=== PATIENT | male | born 1955 | race Caucasian/White ===

== ENCOUNTER 2020-06-01 02:11 | Inpatient (IN) | payer MEDICARE, BC ==
[~2020-06-01] VITALS: Ht 172.7 cm; Wt 107.9 kg
[2020-06-01] MEDS ORDERED: CARV25 PO (02:24)
[2020-06-01] MEDS ORDERED: ASPIR 8181 M1 PO (02:24)
[2020-06-01 02:40] LABS: Calcium, Ionized (POC) 1.22 mmol/L (1.10-1.46); Chloride (POC) 101 mmol/L (98-108); Creatinine (POC) 1.2 mg/dL (0.8-1.3); Glucose (ISTAT POC) 124 mg/dL (70-99); Hemoglobin (POC) 13.9 g/dL (13.5-17.5); Potassium (POC) 3.7 mmol/L (3.5-5.5); Sodium (POC) 138 mmol/L (135-148); Total CO2 (POC) 23 mmol/L (21-32)
[2020-06-01 02:43] LABS: Hematocrit 42.1 % (37.0-53.0); Hemoglobin 13.7 g/dL (13.5-17.5); Mean Corpuscular HGB 31.6 pg (26.0-34.0); Mean Corpuscular HGB Conc 32.5 g/dL (31.5-36.5); Mean Corpuscular Volume 97 fL (80-100); Mean Platelet Volume 9.3 fL (9.1-12.4); Platelet Count 230 K/mm3 (150-400); RDW Coefficient Variation 13.9 % (11.7-14.2); RDW Standard Deviation 50.3 fL (35.1-46.3); Red Blood Cell Count 4.33 M/mm3 (4.30-5.90); White Blood Cell Count 11.17 K/mm3 (4.00-11.30)
[2020-06-01 02:58] LABS: International Normalized Ratio 0.93
[2020-06-01 03:15] LABS: Alanine Aminotransfer (ALT/SGP 27 U/L (12-78); Albumin, Blood 3.7 g/dL (3.4-5.0); Alk Phos 148 U/L (50-136); Anion Gap 7 mmol/L (6-16); Aspartate Aminotrans (AST/SGOT 24 U/L (12-37); Bilirubin, Total 0.5 mg/dL (0.1-1.0); Blood Urea Nitrogen 17 mg/dL (8-24); Bun/Creatinine Ratio 13.8 (12.0-20.0); CO2, Blood 27 mmol/L (21-32); Calcium, Blood 9.1 mg/dL (8.5-10.1); Chloride, Blood 105 mmol/L (98-108); Cholesterol 132 mg/dL (50-200); Creatinine, Blood 1.23 mg/dL (0.60-1.20); Globulin, Blood 3.6 g/dL (2.2-4.0); Glomerular Filtration Rate >60 (60-); Glucose, Blood 121 mg/dL (70-99); HDL Cholesterol 44 mg/dL (>39); LDL/HDL RATIO 0.8; Low Density Lipoprotein Chol 34 mg/dL (0-110); Magnesium, Blood 1.7 mg/dL (1.6-2.4); Potassium, Blood 3.8 mmol/L (3.5-5.5); Sodium, Blood 139 mmol/L (136-145); Total Protein, Blood 7.3 g/dL (6.4-8.2); Triglycerides 268 mg/dL (30-160); Very Low Density Lipoprot Chol 53 mg/dL (6-32)
[2020-06-01 03:19] LABS: Troponin I 0.907 ng/mL (0.000-0.040)
[2020-06-01 08:44] LABS: BASOPHILS ABSOLUTE AUTO 0.05 K/mm3 (0.00-0.23); BASOPHILS PERCENT AUTO 1 % (0-2); EOSINOPHILS ABSOLUTE AUTO 0.45 K/mm3 (0.00-0.68); EOSINOPHILS PERCENT AUTO 5 % (0-6); Hematocrit 39.2 % (37.0-53.0); Hemoglobin 12.6 g/dL (13.5-17.5); IMMATURE GRAN ABSOLUTE AUTO 0.07 K/mm3 (0.00-0.10); IMMATURE GRAN PERCENT AUTO 1 % (0-1); LYMPHOCYTES ABSOLUTE AUTO 3.31 K/mm3 (0.84-5.20); LYMPHOCYTES PERCENT AUTO 34 % (21-46); MONOCYTES ABSOLUTE AUTO 0.84 K/mm3 (0.16-1.47); MONOCYTES PERCENT AUTO 9 % (4-13); Mean Corpuscular HGB 31.3 pg (26.0-34.0); Mean Corpuscular HGB Conc 32.1 g/dL (31.5-36.5); Mean Corpuscular Volume 98 fL (80-100); Mean Platelet Volume 9.3 fL (9.1-12.4); NEUTROPHILS ABSOLUTE AUTO 5.11 K/mm3 (1.96-9.15); NEUTROPHILS PERCENT AUTO 52 % (41-73); Platelet Count 202 K/mm3 (150-400); RDW Coefficient Variation 13.9 % (11.7-14.2); RDW Standard Deviation 50.5 fL (35.1-46.3); Red Blood Cell Count 4.02 M/mm3 (4.30-5.90); White Blood Cell Count 9.83 K/mm3 (4.00-11.30)
[2020-06-01 09:16] LABS: Anion Gap 4 mmol/L (6-16); Blood Urea Nitrogen 17 mg/dL (8-24); Bun/Creatinine Ratio 13.9 (12.0-20.0); CO2, Blood 29 mmol/L (21-32); CPK Creatine Kinase 238 U/L (39-308); Calcium, Blood 8.7 mg/dL (8.5-10.1); Chloride, Blood 106 mmol/L (98-108); Creatine Kinase MB 15.3 ng/mL (0.0-3.6); Creatine Kinase MB Index 6.4 (0.0-4.0); Creatinine, Blood 1.22 mg/dL (0.60-1.20); Glomerular Filtration Rate >60 (60-); Glucose, Blood 105 mg/dL (70-99); Sodium, Blood 139 mmol/L (136-145)
[2020-06-01] MEDS ORDERED: SOLI5 PO (15:50)
[2020-06-01] MEDS ORDERED: ZYRTEC10 M2 PO (15:51)
[2020-06-01] MEDS ORDERED: METF500 PO (16:36)
[2020-06-01] MEDS ORDERED: MONT10T PO (16:36)
[2020-06-01] MEDS ORDERED: ATOR20 (16:39)
[2020-06-01] MEDS ORDERED: PRAM.5 (16:47)
[2020-06-01 16:48] LABS: Creatine Kinase MB Index 5.7 (0.0-4.0)
[2020-06-01] MEDS ORDERED: TAMS.4ER PO (16:48)
[2020-06-01] MEDS ORDERED: DESV50 (16:48)
[2020-06-01 16:51] LABS: Troponin I 5.82 ng/mL (0.000-0.040)
[2020-06-01] MEDS ORDERED: Vitamin D2000 UNIT PO (16:54)
[2020-06-01] MEDS ORDERED: ASPI81CH PO (16:54)
[2020-06-01] MEDS ORDERED: ESOM20 (16:55)
[2020-06-02 10:38] LABS: Calcium, Blood 9.4 mg/dL (8.5-10.1); Creatine Kinase MB Index 2.1 (0.0-4.0); Creatinine, Blood 1.36 mg/dL (0.60-1.20); Potassium, Blood 3.4 mmol/L (3.5-5.5)
[2020-06-02 10:42] LABS: Troponin I 3.2 ng/mL (0.000-0.040)
[2020-06-02] MEDS ORDERED: CLOP75 PO (12:26)
[2020-06-02] MEDS ORDERED: NITR.4SL SL (12:27)
== END 2020-06-02 13:15 | disposition home or self-care (01) | DRG 247 ==
LOC: ER 02:11 → ICUW 02:40
PROVIDERS: Emergency Medicine; ADMIT Internal Medicine Interventional Cardiology
PROC: 027034Z Dilation of Coronary Artery, One Artery with Drug-eluting Intraluminal Device, Percutaneous Approach (ICD-10-PCS; principal; 2020-06-01)
PROC: 02703ZZ Dilation of Coronary Artery, One Artery, Percutaneous Approach (ICD-10-PCS; 2020-06-01)
PROC: 4A023N7 Measurement of Cardiac Sampling and Pressure, Left Heart, Percutaneous Approach (ICD-10-PCS; 2020-06-01)
PROC: B2111ZZ Fluoroscopy of Multiple Coronary Arteries using Low Osmolar Contrast (ICD-10-PCS; 2020-06-01)
DX: I21.19 ST elevation (STEMI) myocardial infarction involving other coronary artery of inferior wall (principal); Z95.5 Presence of coronary angioplasty implant and graft; F17.210 Nicotine dependence, cigarettes, uncomplicated; J44.9 Chronic obstructive pulmonary disease, unspecified; I25.2 Old myocardial infarction; Z79.82 Long term (current) use of aspirin; I10 Essential (primary) hypertension; E78.5 Hyperlipidemia, unspecified; G25.81 Restless legs syndrome; I25.10 Atherosclerotic heart disease of native coronary artery without angina pectoris; E66.9 Obesity, unspecified; Z68.35 Body mass index [BMI] 35.0-35.9, adult; R73.03 Prediabetes
CPT/HCPCS: 36415; 71045; 76937; 80047; 80048; 80053; 80061; 82550; 82553; 83735; 83880; 84484; 85014; 85025; 85027; 85347; 85610; 85730; 86850; 86900; 86901; 92526; 92610; 92921; 93005; 93010; 93306; 93458; 96361; 96374; 96375; 99152; 99153; 99285-25; A9270-GY; C1725; C1769; C1874; C1887; C1894; C9600; C9606; G0008; J1644; J1940; J2250; J2270; J2405; J3010; J7030; J7040; J7050; Q2038; Q9967